=== PATIENT | female | born 1985 | race Caucasian/White ===

== ENCOUNTER → 2019-10-28 10:05 | Outpatient (CLI) | payer OTHER, SELFPAY ==
[2019-10-28 11:32] LABS: Add Manual Diff / Slide Review NO; Basophils Absolute Auto 0 /uL (0-100); Basophils Percent Auto 0.1 % (0-2); Eosinophils Absolute Auto 0 /uL (0-450); Eosinophils Percent Auto 0.3 % (2-4); Hemoglobin 13.1 g/dL (12.0-16.0); Lymphocytes Absolute Auto 1800 /uL (1100-4500); Lymphocytes Percent Auto 19.6 % (25-40); Mean Corpuscular HGB Conc 32.8 % (30-36); Mean Corpuscular Hemoglobin 26.2 PG (26-34); Monocytes Absolute Auto 500 /uL (0-900); Monocytes Percent Auto 5.5 % (3-14); Neutrophils Absolute Auto 6900 /uL (1500-7000); Neutrophils Percent Auto 74.5 % (50-75); Platelet Count 298 X10^3/uL (150-400); Red Blood Cell Count 5.01 X10^6/uL (4.0-5.2); Red Cell Distribution Width 15.2 % (11.6-14.8); White Blood Cell Count 9.2 X10^3/uL (4.5-11.0)
[2019-10-28 11:36] LABS: Appearance Urine UA CLEAR; Bilirubin Urine UA NEGATIVE (NEGATIVE); Color Urine UA YELLOW; Glucose Urine UA NEGATIVE (Negative); Ketones Urine UA NEGATIVE (NEGATIVE); Leukocyte Esterase Urine UA NEGATIVE (NEGATIVE); Nitrite Urine UA NEGATIVE (Negative); Occult Blood Urine UA NEGATIVE (Negative); Protein Urine UA NEGATIVE (Negative); Specific Gravity Urine UA <=1.005 (1.000-1.035); Urobilinogen Urine UA 0.2 E.U./dL (0.2)
[2019-10-28 11:39] LABS: pH Urine UA 6.5 (4.5-8.0)
[2019-10-28 12:30] LABS: Hepatitis B Surface Antigen NEGATIVE s/c (NEGATIVE); Rubella Antibody IgG 17.5 IU/mL (>15)
[2019-10-28 12:52] LABS: HIV 1 & 2 Ab/Ag 4th Gen Combo NEGATIVE (NEGATIVE); Hep C Virus Ab w/Reflex Quant NEGATIVE s/c (NEGATIVE)
[2019-10-29 07:56] LABS: RPR Screen Non Reactive (Non Reactive)
[2019-10-29 10:36] LABS: Varicella IgG Antibody 3337 index (Immune >165)
== END ==
PROVIDERS: PCP Obstetrics & Gynecology; Referring Provider Obstetrics & Gynecology; Visit Provider Obstetrics & Gynecology
DX: Z34.01 Encounter for supervision of normal first pregnancy, first trimester (principal)
CPT/HCPCS: 36415; 80055; 81003; 86787; 86803; 86850; 86900; 86901; 87086; 87389

== ENCOUNTER → 2019-11-28 10:28 | Outpatient (CLI) | payer OTHER, SELFPAY ==
[2019-11-29 23:26] LABS: COVID19 Sendout Not Detected (Not Detect)
== END ==
PROVIDERS: Visit Provider Physician Assistant
DX: Z11.59 Encounter for screening for other viral diseases (principal)
CPT/HCPCS: 87635

== ENCOUNTER → 2019-12-22 15:22 | Outpatient (CLI) | payer OTHER, SELFPAY ==
[2019-12-24 22:36] LABS: AFP, Serum 32.8 ng/mL (.); Estriol, Free 1.02 ng/mL (.); Inhibin A, Dimeric 96.77 pg/mL (.); Inhibin A, MoM 0.87 (.); Maternal Ethnicity Caucasian (.); Maternal Weight 298 lbs (.); Number of Fetuses No (.); OSBR Risk 1 IN 6301 (.); Results Report (.); Test Results *Screen Negative* (.); hCG, MoM 1.32 (.); hCG, Serum 26875 mIU/mL (.)
== END ==
PROVIDERS: PCP Physician Assistant; Referring Provider Obstetrics & Gynecology; Visit Provider Obstetrics & Gynecology
DX: Z34.02 Encounter for supervision of normal first pregnancy, second trimester (principal); Z3A.17 17 weeks gestation of pregnancy
CPT/HCPCS: 36415; 82105; 82677; 84702; 86336

== ENCOUNTER → 2020-01-16 10:38 | Outpatient (CLI) | payer OTHER, SELFPAY ==
--- NOTE | 2020-01-16 10:39 | DI.US.S_ITS ---
PROCEDURE: US OB >= 14 WEEKS FETUS INDICATIONS: Anatomy scan OUTSIDE/PRIOR DATING DATA: Last menstrual period (LMP): 08/22/19. LMP-based estimated date of delivery (ANGELIA): 05/28/20 First dating scan (date and location): 10/28/19 Estimated date of delivery (ANGELIA) from first dating scan: 05/28/20 . TECHNIQUE: Real-time scanning was performed of the fetus, with image documentation and biometric measurements. Endovaginal scanning: Not needed COMPARISON: [facility], , OB >= 14 WEEKS FETUS, 12/22/2019, 15:10. FINDINGS: General: A single living intrauterine gestation is present. Presentation: Vertex. Placenta: Placental position is posterior , without previa. Amniotic fluid index: 0.6 cm, normal range is 5-24 cm. heart rate: 163 beats per minute. Maternal cervical canal: 4.0 cm long. Normal lower limit is 2.5 cm. biometrics: Biparietal diameter: 5.0 cm, 21 weeks 0 days Head circumference: 18.6 cm, 20 weeks 6 days Abdominal circumference: 16.3 cm, 21 weeks 2 days Femur length: 3.5 cm, 21 weeks 1 day Estimated gestational age from initial scan: 21 weeks 0 days Composite gestational age from present scan: 21 weeks 1 day Estimated weight and percentile: 407 g, 56th percentile Measurement variability for biometric dating: +/- 7 days from 14 weeks to 15 weeks 6 days gestation, +/- 10 days from 16 weeks to 21 weeks 6 days gestation, +/- 2 weeks from 22 weeks to 27 weeks 6 days gestation, +/- 3 weeks for 28 weeks gestation or later. weight reference: 4500 g or EFW >90/95% is considered macrosomia or large for gestational age. EFW <10% is small for gestational age. EFW 5% or less is considered intra-uterine growth restriction. Anatomic survey: Neuro: Ventricles are non-dilated at less than 10 mm. Cisterna magna is normal at 3-11 mm. Cerebellum is normal in size and morphology. Nuchal skin fold: Normal at less than 6 mm between 14-21 weeks gestational age. Face: Nose and lips, facial profile are normal. Spine: No evidence for spina bifida. Heart: 4-chambered heart is present, with normal ventricular outflow tracts. Diaphragm: Diaphragm is intact. Stomach: Left-sided stomach is present. Kidneys: No hydronephrosis. Normal is less than 5 mm in 2nd trimester, less than 7 mm in 3rd trimester. Cord: 3-vessel cord has orthotopic insertion. Bladder: Normal in size. Extremities: All 4 extremities identified. IMPRESSION: Appropriate interval growth, no anomaly seen. The delivery date is projected to be centered on 05/28/20. Dictated by: José Miguel Sood M.D. on 01/16/2020 at 13:51 Approved by: José Miguel Sood M.D. on 01/16/2020 at 13:53
== END ==
PROVIDERS: PCP Physician Assistant; Referring Provider Obstetrics & Gynecology; Visit Provider Obstetrics & Gynecology
DX: Z34.02 Encounter for supervision of normal first pregnancy, second trimester (principal); Z3A.21 21 weeks gestation of pregnancy
CPT/HCPCS: 76811

== ENCOUNTER → 2020-02-23 07:57 | Outpatient (CLI) | payer OTHER, SELFPAY ==
[2020-02-23 09:35] LABS: Hematocrit 35.9 % (36-46); Hemoglobin 11.8 g/dL (12.0-16.0)
[2020-02-23 10:14] LABS: GTT (PREG) 1 Hour PP 50gm Dose 124 mg/dL (76-139)
== END ==
PROVIDERS: PCP Physician Assistant; Referring Provider Obstetrics & Gynecology; Visit Provider Obstetrics & Gynecology
DX: Z34.02 Encounter for supervision of normal first pregnancy, second trimester (principal); Z3A.26 26 weeks gestation of pregnancy
CPT/HCPCS: 36415; 82950; 85014; 85018

== ENCOUNTER 2020-04-21 16:56 | Outpatient (CLI) | payer OTHER, SELFPAY ==
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
== END 2020-04-21 17:40 | disposition home or self-care (01) ==
LOC: OB 04-22 07:17
PROVIDERS: PCP Physician Assistant; Referring Provider Obstetrics & Gynecology; Visit Provider Obstetrics & Gynecology
DX: O36.8130 Decreased fetal movements, third trimester, not applicable or unspecified (principal); O13.3 Gestational [pregnancy-induced] hypertension without significant proteinuria, third trimester; Z3A.34 34 weeks gestation of pregnancy
CPT/HCPCS: 59025; 59050; G0378; G0379

== ENCOUNTER → 2020-05-03 10:01 | Outpatient (CLI) | payer OTHER, SELFPAY ==
[2020-05-04 12:07] LABS: Strep Grp B PCR POS for Grp B Strep
== END ==
PROVIDERS: PCP Physician Assistant; Visit Provider Obstetrics & Gynecology
DX: Z34.03 Encounter for supervision of normal first pregnancy, third trimester (principal); Z3A.36 36 weeks gestation of pregnancy
CPT/HCPCS: 87653

== ENCOUNTER 2020-05-25 18:36 | Inpatient (IN) | payer OTHER, SELFPAY ==
[2020-05-25 19:46] VITALS: BP 130/77
[2020-05-25 20:11] LABS: Add Manual Diff / Slide Review NO; Basophils Absolute Auto 100 /uL (0-100); Basophils Percent Auto 0.4 % (0-2); Eosinophils Absolute Auto 100 /uL (0-450); Eosinophils Percent Auto 0.6 % (2-4); Hematocrit 34.6 % (36-46); Hemoglobin 11.3 g/dL (12.0-16.0); Lymphocytes Absolute Auto 2000 /uL (1100-4500); Lymphocytes Percent Auto 14.6 % (25-40); Mean Corpuscular HGB Conc 32.7 % (30-36); Mean Corpuscular Hemoglobin 25.9 PG (26-34); Mean Corpuscular Volume 79.2 fL (80-100); Monocytes Absolute Auto 700 /uL (0-900); Monocytes Percent Auto 5.2 % (3-14); Neutrophils Absolute Auto 10900 /uL (1500-7000); Neutrophils Percent Auto 79.2 % (50-75); Platelet Count 255 X10^3/uL (150-400); Red Blood Cell Count 4.37 X10^6/uL (4.0-5.2); Red Cell Distribution Width 15.5 % (11.6-14.8); White Blood Cell Count 13.7 X10^3/uL (4.5-11.0)
[2020-05-25] MEDS: DINOPROSTONE VAG (CERVIDIL) 10 MG VAG (20:17)
[2020-05-25 21:33] LABS: COVID19 - ADMIT (NP swab/PCR) Negative (Negative)
[2020-05-26] MEDS: PENICILLIN G POTASSIUM 5,000,000 UNIT in DEXTROSE 5% IN WATER 250 ML IV (08:00)
[2020-05-26] MEDS: LACTATED RINGERS 1,000 ML 100 ML IV ×3 (08:01→18:26)
[2020-05-26] MEDS: OXYTOCIN PREMIX 30 UNIT/500 ML PLAST..BAG IV (08:02)
[2020-05-26] MEDS: PENICILLIN G POTASSIUM 3,000,000 UNIT/50 ML FROZ.PIGGY 100 UNIT IV ×3 (12:08→20:10)
[2020-05-26] MEDS: FENT 2MCG/ML BUPIV 0.125% EPI 200 MCG/100 ML PLAST..BAG 12 MCG EPIDURAL ×2 (12:30→18:27)
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
--- NOTE | 2020-05-26 21:52 | PM.OBPNLAB ---
Date/Time Date Patient Seen: 05/26/20 Time Patient Seen: 13:00 Pain Control Pain control: tolerating well Pelvic Exam Dilation (cm): 3 Effacement (%): 100 station: -1 Amniotic membrane status: Ruptured (Spontaneously) Contractions Monitor mode: External Pitocin rate (mU/min): 9 Contraction frequency (min): 3 Contraction duration (min): 1 Contraction pattern: Irregular (couplets) Contraction intensity: Moderate Status status: Category l Heart Rate Baseline: 130 Monitor Accelerations: Present Monitor Decelerations: Absent Monitor Variability: Moderate Assessment and Plan Assessment: induction ongoing Plan: continuous present management
--- NOTE | 2020-05-26 21:53 | PM.OBPNLAB ---
Date/Time Date Patient Seen: 05/26/20 Time Patient Seen: 15:45 Pain Control Pain control: epidural Pelvic Exam Dilation (cm): 4 Effacement (%): 100 station: -1 Amniotic membrane status: Ruptured (Spontaneously) Contractions Monitor mode: External Pitocin rate (mU/min): 6 Contraction frequency (min): 3 Contraction duration (min): 1 Contraction pattern: Regular (couplets) Contraction intensity: Moderate Status status: Category l Heart Rate Baseline: 135 Monitor Accelerations: Present Monitor Decelerations: Absent Monitor Variability: Moderate Assessment and Plan Assessment: induction ongoing Plan: continuous present management
--- NOTE | 2020-05-26 21:55 | PM.OBPNLAB ---
Date/Time Date Patient Seen: 05/26/20 Time Patient Seen: 18:30 Pain Control Pain control: epidural Pelvic Exam Dilation (cm): 5 Effacement (%): 100 station: -1 Amniotic membrane status: Ruptured (Spontaneously) Contractions Monitor mode: External Pitocin rate (mU/min): 13 Contraction frequency (min): 3 Contraction duration (min): 1 Contraction pattern: Regular (couplets) Contraction intensity: Strong/Firm Status status: Category l Heart Rate Baseline: 135 Monitor Accelerations: Present Monitor Decelerations: Absent Monitor Variability: Moderate Assessment and Plan Assessment: induction ongoing Comments: IUPC placed to assess uterine contraction adequacy
--- NOTE | 2020-05-26 21:56 | PM.OBPNLAB ---
Date/Time Date Patient Seen: 05/26/20 Time Patient Seen: 21:41 Pain Control Pain control: epidural (Left sided window) Pelvic Exam Dilation (cm): 8 Effacement (%): 100 station: 0 Amniotic membrane status: Ruptured (Spontaneously) Contractions Monitor mode: Internal Pitocin rate (mU/min): 7 Contraction frequency (min): 2 Contraction duration (min): 1 Contraction pattern: Regular (couplets) Contraction intensity: Strong/Firm Intrauterine tone measurement: 420 Status status: Category l Heart Rate Baseline: 135 Monitor Accelerations: Present Monitor Decelerations: Absent Monitor Variability: Moderate Assessment and Plan Assessment: active labor and induction ongoing Plan: continuous present management Comments: Decrease pitocin until contractions back to 3 min apart
--- NOTE | 2020-05-26 23:30 | PM.OBPNLAB ---
Date/Time Date Patient Seen: 05/26/20 Time Patient Seen: 23:30 Pain Control Pain control: epidural Pelvic Exam Dilation (cm): 9 Effacement (%): 100 station: 0 Amniotic membrane status: Ruptured (Spontaneously) Contractions Monitor mode: Internal Pitocin rate (mU/min): 5 Contraction frequency (min): 3 Contraction duration (min): 1 Contraction pattern: Regular (couplets) Contraction intensity: Strong/Firm Intrauterine tone measurement: 200 Status status: Category l Heart Rate Baseline: 135 Monitor Accelerations: Present Monitor Decelerations: Variable Monitor Variability: Moderate Assessment and Plan Assessment: induction ongoing Plan: continuous present management
[2020-05-27] VITALS (7 sets, daily range): BP systolic 103–124; BP diastolic 44–79; PULSE 71–83; RESP 9–18; TEMP 36.6–36.7; O2SAT 99–100
[2020-05-27] MEDS: PENICILLIN G POTASSIUM 3,000,000 UNIT/50 ML FROZ.PIGGY 100 UNIT IV ×2 (00:05→04:15)
--- NOTE | 2020-05-27 03:36 | PM.OBPNLAB ---
Date/Time Date Patient Seen: 05/27/20 Time Patient Seen: 03:36 Pain Control Pain control: epidural Pelvic Exam Dilation (cm): 10 Effacement (%): 100 station: +1 Amniotic membrane status: Ruptured (Spontaneously) Contractions Monitor mode: External Pitocin rate (mU/min): 7 Contraction frequency (min): 3 Contraction duration (min): 1 Contraction pattern: Regular (couplets) Contraction intensity: Strong/Firm Intrauterine tone measurement: 200 Status status: Category l Heart Rate Baseline: 160 Monitor Accelerations: Present Monitor Decelerations: Absent Monitor Variability: Moderate Assessment and Plan Plan: Comments: Assessement: Stage 2 arrest of labor Suspect Occiput Posterior Plan: Primary C section Peds notified The risks, benefits and alternatives to the procedure were explained to the patient. The risks including bleeding, infection, injury to the bowel, bladder or ureters. The patient understands these risks and agrees to proceed. A full PAR-Q was held and the consent form was signed.
--- NOTE | 2020-05-27 04:35 | PM.PREOP ---
Pre-operative Note COVID-19 COVID-19 status: Negative Result date/Date tested (Pos, Neg/Pending): 05/25/20 Interval Note History & Physical reviewed/Exam performed by Physician: Yes Changes to H&P: No H&P completed within 30 days and has changed as indicated here:: 05/26/20
[2020-05-27] MEDS: CEFAZOLIN 1 GM/50 ML FROZ.PIGGY IV (04:43)
[2020-05-27] MEDS: CEFAZOLIN 2 GM/100 ML FROZ.PIGGY IV (04:48)
--- NOTE | 2020-05-27 05:27 | SUR.OPER ---
live female at 0508. APGARS 8/9
--- NOTE | 2020-05-27 05:55 | P.OP_ITS ---
Operative Date/Time/Diagnoses Date of procedure: 05/27/20 Time of procedure: 05:55 Pre-op diagnosis: Stage 2 arrest of labor 39+6 weeks gestation Occiput posterior Post-op diagnosis: same Procedure & Clinicians Procedure: Primary low-transverse section Same procedure as scheduled: Yes Indications: Occiput posterior Stage II arrest of labor Thirty-nine and 6 7th weeks gestation Surgeon: Gaviota Mendoza Yes if Unassisted: No Bakeshop Cleaner: Estella Grewal Reason for Bakeshop Cleaner: Mother with obesity Anesthesia Type: Epidural Operative Notes Findings: Live female infant in the direct occiput posterior presentation Nuchal cord x1 Normal uterus, tubes, and ovaries Closure Type: primary Specimen(s): cord blood and placenta Intraoperative meds administered: Duramorph, Ketorolac and Pitocin Applied: Catheter (To continuous drainage) Estimated Blood Loss (mL): 500 Blood products transfused: none Procedure in detail: The patient was taken to the operating room where she was placed in the dorsal supine position with a leftward tilt. She was prepped in the usual fashion. After vaginal prep, the head was elevated from below. The patient was draped in the usual fashion. A timeout was performed. After epidural analgesia was found to be adequate, a Pfannenstiel skin incision was made 2 fingerbreadths above the pubic symphysis and carried through to the underlying layer fascia with retraction from the drilling assistant. The fascia was nicked in the midline, and the incision extended bilaterally with the Payne scissors with retraction from the drilling assistant. The superior aspect of the fascial incision was grasped with a Wilson clamps, elevated, and the underlying rectus muscles dissected off sharply and bluntly with retraction from the drilling assistant. Attention was then turned to the inferior aspect of this incision which in a similar fashion was grasped with a Wilson clamps, elevated, and the underlying rectus muscles dissected off sharply and bluntly with retraction from the drilling assistant. The rectus muscles were in the midline. The peritoneum was identified, grasped between 2 hemostats, and entered sharply with the Metzenbaum scissors. This incision was extended superiorly and inferiorly with good visualization of the bladder and retraction from the drilling assistant. The Nilay was placed into the peritoneal cavity. The vesicouterine peritoneum was identified, grasped with the pickup, and entered sharply with the Metzenbaum scissors. This incision was extended bilaterally, and the bladder flap was cre ated digitally. The lower uterine segment was incised in a transverse fashion with the scalpel with suction from the drilling assistant. Upon entering the amniotic sac there was a small amount of clear amniotic fluid. The 's head was delivered without difficulty in the direct occiput posterior presentation. A nuchal cord x1 was reduced. The nose and mouth were suctioned with bulb suction. The remainder of the body delivered without difficulty. The cord was double clamped and cut. The infant was handed off to waiting RN and RT. Cord bloods were obtained. The placenta was delivered manually. The uterus was cleared of all clots and debris. There was found to be an extension of the uterine incision on the right side. This was repaired in a running interlocking suture with #1 chromic. The uterine incision was repaired with #1 chromic in a running interlocking fashion, and a second layer the same suture was used for an imbricating layer. With retraction from the drilling assistant. Hemostasis was achieved. The tubes and ovaries were examined and were found to be normal. The gutters were cleared of all clots and debris. The bladder flap was reapproximated using 2-0 Vicryl in a running fashion with retraction from the drilling assistant. The parietal peritoneum was closed using 2-0 Vicryl in a running fashion with retraction from the drilling assistant. The fascia was reapproximated using 0 Vicryl in a running fashion and the contralateral side was done by the drilling assistant. The subcutaneous layer was copiously irrigated with warm normal saline. Twelve simple interrupted sutures of 3-0 Vicryl were placed to reapproximate the subcutaneous layer in 2 layers, with retraction from the drilling assistant. The skin was closed with 4-0 Monocryl in a subcuticular fashion. Steri-Strips were placed. An Aquacel dressing was placed. The uterus was expressed of a small amount of old blood. Sponge, lap, and instrument counts were correct ?-2. The patient tolerated the procedure well, and was taken to PACU in stable condition. Complications: none [place] Baby 1: Infant Gender: Female Presentation: vertex Position: Occiput Posterior Placental Delivery Description: Spontaneous and Manual Removal Cord Vessel Description: 3 Vessels and Nuchal Cord score (1 min): 8 score (5 min): 9 weight: 7 lb 12 oz Post-operative Condition: stable Disposition: PACU Aftercare: routine postop
--- NOTE | 2020-05-27 06:24 | SUR.PHASEI ---
0619 Patient to 2. Bed remains elevated for RN patient care; locked. VSS. Patient relaxed, denies pain/nausea. RN given report prior to transfer. She is settling the patient and had no further questions for PACU staff. Stable, no bleeding, dressing CDI at last check
[2020-05-27] MEDS: LANOLIN OINT 7 GM 1 APPLIC TOP (07:52)
[2020-05-27] MEDS: KETOROLAC 30 MG/ML VIAL IV ×3 (11:33→23:37)
[2020-05-27] MEDS: OXYCODONE IR 5 MG TABLET PO (11:40)
[2020-05-28] MEDS: IBUPROFEN 600 MG TABLET PO ×4 (05:40→23:58)
[2020-05-28] MEDS: ACETAMINOPHEN 325 MG TABLET 650 MG PO ×4 (05:40→23:58)
[2020-05-28 05:48] LABS: Hematocrit 27.5 % (36-46)
[2020-05-28] MEDS: DOCUSATE 250 MG CAPSULE PO (08:46)
[2020-05-28] MEDS: PRENATAL VIT,CALC/IRON/FOLIC 1 TABLET 1 TAB PO (08:47)
[2020-05-28] MEDS: OXYCODONE IR 5 MG TABLET PO ×4 (08:49→23:57)
[2020-05-28 09:00] VITALS: BP 111/73; PULSE 85
--- NOTE | 2020-05-28 13:08 | PM.OBPN.1 ---
Subjective - OB Subjective Date Patient Seen: 05/28/20 Time Patient Seen: 07:40 Interval history: Pt reports that she is feeling well today. She denies any specific concerns. Her pain is slightly worse today than yesterday, but she was out of bed very often yesterday. Her lochia is around the level of a normal menses. She has passed flatus and is voiding without difficulty. She is with good latch. Baby was more fussy last night. Exam Vital Signs (past 8 hours): Oxygen Delivery Method Room Air Resp Auscultation: clear to auscultation bilaterally Cardio Rate: regular rate Rhythm: regular rhythm Heart Sounds: S1 normal, S2 normal and no murmurs GI Inspection: non-distended, incision (dressing c/d/i) and obesity Palpation: soft, No guarding and tender (appropriately tender) Auscultation: normal bowel sounds Other: fundus firm and below the umbilicus Extrem Right upper extremity: no edema Objective Labs Result Diagrams: 05/28/20 05:25 Labs: Laboratory Results - last 24 hr 05/28/20 05:25 Hgb 9.0 L Hct 27.5 L Assessment & Plan Plan Comments: Pt is a 34yo POD#1 s/p primary without complications. Pt doing well. - Normal /postoperative care - support Time Spent With Patient Time: Total time spent is greater than 50% in coordination of care (as documented) at patient's floor/unit and/or counseling patient: Time with patient: less than 15 minutes
[2020-05-28 16:00] VITALS: BP 130/87; PULSE 87; RESP 16; TEMP 37
[2020-05-28] MEDS: LABETALOL 100 MG TABLET PO (20:28)
[2020-05-29] MEDS: ACETAMINOPHEN 325 MG TABLET 650 MG PO (06:50)
[2020-05-29] MEDS: OXYCODONE IR 5 MG TABLET PO (06:50)
[2020-05-29] MEDS: IBUPROFEN 600 MG TABLET PO (06:51)
[2020-05-29 09:07] VITALS: BP 148/87
[2020-05-29] MEDS: PRENATAL VIT,CALC/IRON/FOLIC 1 TABLET 1 TAB PO (09:07)
[2020-05-29] MEDS: LABETALOL 100 MG TABLET PO (09:07)
--- NOTE | 2020-05-29 09:26 | P.DS_ITS ---
Discharge Providers Provider Date of admission: 05/25/20 18:36 Discharge Date: 05/29/20 Primary care physician: Yamila Carranza PA-C Consults: 05/27/20 06:36 Consult to Slabbing Machine Operator Routine Comment: Discharge provider: Selma Zamarripa MD Summary Hospital Course Date Patient Seen: 05/29/20 Time Patient Seen: 09:27 Diagnoses: gestational hypertension, primary section for arrest of descent in the second stage of labor. Hospital Course: This is a 34-year-old now postop day 2 status post primary section for arrest of descent in the 2nd stage after induction of labor for gestational hypertension. The patient continues to be largely normotensive off of antihypertensives with no PIH symptoms or other concerns, is meeting postoperative goals well. Cautions for return were discussed and the patient is for discharge home today with outpatient follow-up scheduled. Peripartum Data Infant Delivery Method: Section Procedures: Primary section complications: none [place] 1: Gender: Female Disposition of : home Status at Discharge Cognitive/behavioral status at discharge: oriented Functional status at discharge: independent ambulation Overall status at discharge: patient is progressing back to baseline Time Spent with Patient Time attestation: Total time spent providing and/or coordinating discharge services: Time spent: Less than 30 minutes Objective Labs Result Diagrams: 05/28/20 05:25 Exam Vital Signs (past 8 hours): 120s to 130s over 60s to 80s, heart rate 74 Oxygen Delivery Method Room Air Narrative Exam Narrative: Patient ambulating, passing flatus, tolerating p.o., voiding, mild lochia. Good pain control on p.o. medications, no PIH symptoms. Patient . Const General: cooperative, healthy appearing and comfortable Resp Effort & Inspection: normal respiratory effort Auscultation: clear to auscultation bilaterally Cardio Rate: regular rate Rhythm: regular rhythm GI Inspection: incision (Covered by Aquacel) and large pannus Palpation: soft and No tender Extrem General: normal to inspection (1+ edema lower extremities) Discharge Plan Discharge Plan Patient Disposition: Home Provider Discharge Comment: Call with fever, chills, redness or drainage around incision or bleeding vaginally more than a pad in an hour Push fluids Stool softner as needed Discharge orders & Medications Prescriptions: New oxycodone 5 mg tablet 5 mg PO Q4H PRN (Reason: pain) Qty: 20 RF: 0 Continued prenat.vits,alexander,iuo-booe-avqys Tablet 1 tab PO DAILY RF: 0 loratadine [Claritin] 10 mg tablet 10 mg PO DAILY RF: 0 montelukast 10 mg tablet 10 mg PO DAILY RF: 0 albuterol sulfate [Ventolin HFA] 90 mcg/actuation HFA aerosol inhaler 2 puff INHALATION Q6H PRN (Reason: asthma) Qty: 8.5 RF: 3 labetalol 100 mg tablet 100 mg PO BID Qty: 60 RF: 3 Follow up/Referrals: Gaviota Brantley MD [Physician] - 1 Week (Aquacel removal on , 06/03/2020 @ [address] Brantley) Diet/Activity/Treatments Diet: Regular Activity: No heavy lifting Skin/Wound/Dressing Care Report to your healthcare provider any signs of infection, such as:: chills, fever, night sweats, increased pain, unusual drainage and unusual redness Dressing: Do not remove Visit Report/Discharge Packet Instructions: DI for , DI for Prescription Opioid Use Discharge Data Primary Care Provider: Yamila Carranza
== END 2020-05-29 11:45 | disposition home or self-care (01) | DRG 788 ==
PROVIDERS: Admitting Provider Obstetrics & Gynecology; PCP Physician Assistant; Referring Provider Obstetrics & Gynecology; Visit Provider Obstetrics & Gynecology
PROC: 10D00Z1 Extraction of Products of Conception, Low, Open Approach (ICD-10-PCS; CPT 59514; principal; 2020-05-27 04:45)
DX: O64.0XX0 Obstructed labor due to incomplete rotation of fetal head, not applicable or unspecified (principal); O99.214 Obesity complicating childbirth; O62.1 Secondary uterine inertia; Z3A.39 39 weeks gestation of pregnancy; Z37.0 Single live birth; O99.824 Streptococcus B carrier state complicating childbirth; O13.4 Gestational [pregnancy-induced] hypertension without significant proteinuria, complicating childbirth
CPT/HCPCS: 01967; 01968; 36415; 59050; 59200; 59510; 59514; 76815; 85014; 85018; 85025; 86850; 86900; 86901; 87635; C9803; G0379; J0690; J1885; J2274; J2405; J2540; J2590; J3010

== ENCOUNTER → 2020-06-08 16:47 | Outpatient (CLI) | payer OTHER, SELFPAY ==
[2020-06-08 17:42] LABS: Appearance Urine UA CLEAR; Bilirubin Urine UA NEGATIVE (NEGATIVE); Color Urine UA YELLOW; Glucose Urine UA NEGATIVE (Negative); Ketones Urine UA NEGATIVE (NEGATIVE); Leukocyte Esterase Urine UA 1+ (NEGATIVE); Nitrite Urine UA NEGATIVE (Negative); Occult Blood Urine UA 1+ (Negative); Protein Urine UA NEGATIVE (Negative); Urobilinogen Urine UA 0.2 E.U./dL (0.2)
[2020-06-08 17:56] LABS: Bacteria Urine Few (2-10); Culture Indicated Urine Specimen Cultured; RBC Urine 1-5/HPF (0-5/HPF); Renal Epithelial Cells Urine 0-1/HPF (0-1/HPF); Squamous Epithelial Cell Urine 0-1 /HPF (0-5/HPF); Transitional Epi Cells Urine 0-1/HPF (0-5/HPF); WBC Urine 1-5/HPF (0-5/HPF)
== END ==
PROVIDERS: Referring Provider Obstetrics & Gynecology; Visit Provider Obstetrics & Gynecology
DX: M54.5 Low back pain (principal)
CPT/HCPCS: 81001; 87086

== ENCOUNTER → 2021-05-24 17:18 | Outpatient (CLI) | payer OTHER, SELFPAY ==
[2021-05-24 17:40] LABS: Add Manual Diff / Slide Review NO; Basophils Absolute Auto 0 /uL (0-100); Basophils Percent Auto 0.3 % (0-2); Eosinophils Absolute Auto 0 /uL (0-450); Eosinophils Percent Auto 0.5 % (2-4); Hematocrit 39.1 % (36-46); Hemoglobin 12.9 g/dL (12.0-16.0); Lymphocytes Absolute Auto 2600 /uL (1100-4500); Lymphocytes Percent Auto 25.9 % (25-40); Mean Corpuscular HGB Conc 32.9 % (30-36); Mean Corpuscular Hemoglobin 25.2 PG (26-34); Mean Corpuscular Volume 76.6 fL (80-100); Monocytes Absolute Auto 400 /uL (0-900); Monocytes Percent Auto 4.4 % (3-14); Neutrophils Absolute Auto 7000 /uL (1500-7000); Neutrophils Percent Auto 68.9 % (50-75); Platelet Count 277 X10^3/uL (150-400); Red Blood Cell Count 5.11 X10^6/uL (4.0-5.2); Red Cell Distribution Width 16.2 % (11.6-14.8); White Blood Cell Count 10.2 X10^3/uL (4.5-11.0)
[2021-05-25 06:34] LABS: RPR Screen Non Reactive (Non Reactive)
[2021-05-25 06:36] LABS: Varicella IgG Antibody 1786 index (Immune >165)
[2021-05-26 16:39] LABS: HIV 1 & 2 Ab/Ag 4th Gen Combo NEGATIVE (NEGATIVE); Hep C Virus Ab w/Reflex Quant NEGATIVE s/c (NEGATIVE); Hepatitis B Surface Antigen NEGATIVE s/c (NEGATIVE); Rubella Antibody IgG 14.5 IU/mL (>15)
== END ==
PROVIDERS: Referring Provider Obstetrics & Gynecology; Visit Provider Obstetrics & Gynecology
DX: Z34.80 Encounter for supervision of other normal pregnancy, unspecified trimester (principal)
CPT/HCPCS: 36415; 80055; 86787; 86803; 86850; 86900; 86901; 87389

== ENCOUNTER → 2021-07-04 10:08 | Outpatient (CLI) | payer OTHER, SELFPAY ==
[2021-07-06 20:12] LABS: AFP, Serum 51.2 ng/mL (.); Calc Gestational Age Ultrasound (.); Estriol, Free 3.24 ng/mL (.); Inhibin A, Dimeric 264.45 pg/mL (.); Inhibin A, MoM 2.46 (.); Maternal Ethnicity Caucasian (.); Maternal Weight 297 lbs (.); Number of Fetuses Twins (.); OSBR Risk 1 IN 4524 (.); Results Report (.); Test Results *Screen Negative* (.); hCG, MoM 3.12 (.); hCG, Serum 58863 mIU/mL (.)
== END ==
PROVIDERS: Referring Provider Obstetrics & Gynecology; Visit Provider Obstetrics & Gynecology
DX: Z34.80 Encounter for supervision of other normal pregnancy, unspecified trimester (principal); Z3A.18 18 weeks gestation of pregnancy
CPT/HCPCS: 36415; 82105; 82677; 84702; 86336

== ENCOUNTER → 2021-07-20 10:38 | Outpatient (CLI) | payer OTHER, SELFPAY ==
--- NOTE | 2021-07-20 10:40 | DI.US.S_ITS ---
PROCEDURE: US OB >= 14 WEEKS FETUS INDICATIONS: anatomy scan OUTSIDE/PRIOR DATING DATA: Last menstrual period (LMP): 02/25/2021 LMP-based estimated date of delivery (ANGELIA): 12/02/2021 First dating scan (date and location): 04/25/2021 Estimated date of delivery (ANGELIA) from first dating scan: 12/03/2021 The calculations are made using the ultrasound ANGELIA of 12/03/2021 TECHNIQUE: Real-time scanning was performed of the fetuses, with image documentation and biometric measurements. Endovaginal scanning: Not performed COMPARISON: [facility], US, US OB <= 14 WEEKS FETUS, 04/25/2021, 9:31. [facility], , US OB >= 14 WEEKS FETUS, 06/27/2021, 14:25. FINDINGS: General: An intrauterine dichorionic-diamniotic twin is present, as evidenced by a thick intervening septum on 1st trimester ultrasound. Maternal cervical canal: 5.2 cm long. Normal lower limit is 2.5 cm. FETUS A: Fetus is located on the maternal right side, and is in vertex presentation. Largest amniotic fluid pocket: 5.5 cm cm; normal range is 2-8 cm. Placental position is anterior, without previa. heart rate: 145 beats per minute. biometrics: Biparietal diameter: 4.8 cm, 20 weeks 3 days Head circumference: 18.2 cm, 20 weeks 4 days Abdominal circumference: 16.5 cm, 21 weeks 4 days Femur length: 3.6 cm, 21 weeks 3 days Clinically estimated gestational age: 20 weeks 4 days Composite gestational age from present scan: 21 weeks 0 days Estimated weight and percentile: 418 g, 85th percentile Anatomic survey: Neuro: Ventricles are normal at less than 10 mm. Cisterna magna is normal at 3-11 mm. Cerebellum is normal in size and morphology. Nuchal skin fold: Normal at less than 6 mm between 14 and 21 weeks gestational age. Face: Nose and lips, facial profile are normal. Spine: Spine is not well visualized due to position. Heart: 4 chambered heart is present, with normal ventricular outflow tracts. Diaphragm: Diaphragm is intact. Stomach: Left-sided stomach is present. Kidneys: No hydronephrosis. Normal ranges are less than 5 mm in 2nd trimester, less than 7 mm in 3rd trimester. Cord: 3 vessel cord has orthotopic insertion. Bladder: Normal in size. Extremities: All 4 extremities are visualized. FETUS B: Fetus is located on the maternal left side, and is in breech presentation. Largest amniotic fluid pocket: 4.3 cm; normal range is 2-8 cm. Placental position is anterior, without previa. heart rate: 155 beats per minute. biometrics: Biparietal diameter: 4.9 cm, 20 weeks 5 days Head circumference: 18.8 cm, 21 weeks 1 day Abdominal circumference: 15.8 cm, 20 weeks 6 days Femur length: 3.6 cm, 21 weeks 4 days Clinically estimated gestational age: 20 weeks 4 days Composite gestational age from present scan: 21 weeks 1 day Estimated weight and percentile: 405 g, 78th percentile Anatomic survey: Neuro: Ventricles are normal at less than 10 mm. Cisterna magna is normal at 3-11 mm. Cerebellum is normal in size and morphology. Nuchal skin fold: Normal at less than 6 mm between 14 and 21 weeks gestational age. Face: Nose and lips, facial profile are normal. Spine: Spine is not well visualized due to position. Heart: 4 chambered heart is present, with normal ventricular outflow tracts. Diaphragm: Diaphragm is intact. Stomach: Left-sided stomach is present. Kidneys: No hydronephrosis. Normal ranges are less than 5 mm in 2nd trimester, less than 7 mm in 3rd trimester. Cord: 3 vessel cord has orthotopic insertion. Bladder: Normal in size. Extremities: All 4 extremities are visualized. IMPRESSION: 1. Live intrauterine twin with appropriate growth. 2. spine not well visualized for twin A or twin B. Recommend follow-up exam. 3. Otherwise, normal anatomic survey for each fetus. We strive to produce accurate, complete, and clear reports of imaging services. To assist us in improving patient care, this report was composed using standard report templates and voice recognition software. Therefore, it may contain abnormal punctuation, insertions and/or omissions. Occasional wrong-word or sound-alike substitutions may occur. Though we review the report and make efforts to correct it, we do recommend that the report be read carefully in proper context to recognize any text inaccuracies. Dictated by: French Huizar M.D. on 07/20/2021 at 13:51 Approved by: French Huizar M.D. on 07/20/2021 at 14:02
== END ==
PROVIDERS: Referring Provider Obstetrics & Gynecology; Visit Provider Obstetrics & Gynecology
DX: O30.042 Twin pregnancy, dichorionic/diamniotic, second trimester (principal); Z3A.20 20 weeks gestation of pregnancy
CPT/HCPCS: 76811; 76812

== ENCOUNTER → 2021-08-24 11:01 | Outpatient (CLI) | payer OTHER, SELFPAY ==
[2021-08-24 13:37] LABS: Creatinine Urine Random 18.4 mg/dL; Protein (Total) Urine Random 13 mg/dL (0-12)
[2021-08-24 13:42] LABS: Add Manual Diff / Slide Review NO; Basophils Absolute Auto 0 /uL (0-100); Basophils Percent Auto 0.1 % (0-2); Eosinophils Absolute Auto 0 /uL (0-450); Eosinophils Percent Auto 0.4 % (2-4); Hematocrit 32.6 % (36-46); Hemoglobin 10.8 g/dL (12.0-16.0); Lymphocytes Absolute Auto 2100 /uL (1100-4500); Mean Corpuscular HGB Conc 33.3 % (30-36); Mean Corpuscular Hemoglobin 25.4 PG (26-34); Mean Corpuscular Volume 76.4 fL (80-100); Monocytes Absolute Auto 500 /uL (0-900); Monocytes Percent Auto 4.5 % (3-14); Neutrophils Absolute Auto 7500 /uL (1500-7000); Platelet Count 219 X10^3/uL (150-400); Red Blood Cell Count 4.26 X10^6/uL (4.0-5.2); White Blood Cell Count 10.1 X10^3/uL (4.5-11.0)
[2021-08-24 13:48] LABS: Alanine Aminotransferase 14 IU/L (<35); Aspartate Aminotransferase 15 IU/L (14-36); BUN Creatinine Ratio 10.9 (6-22); Blood Urea Nitrogen 6 mg/dL (7-17); Estimated Glomerular Filt Rate > 60 mL/min (>60); GTT (PREG) 1 Hour PP 50gm Dose 140 mg/dL (76-139); Uric Acid 4.3 mg/dL (2.5-6.2)
[2021-08-25 20:30] LABS: Urine N gonorrhoeae NOT DETECTED
[2021-08-25 20:49] LABS: Urine Chlamydia NOT DETECTED
== END ==
PROVIDERS: PCP Obstetrics & Gynecology; Referring Provider Obstetrics & Gynecology; Visit Provider Obstetrics & Gynecology
DX: O13.9 Gestational [pregnancy-induced] hypertension without significant proteinuria, unspecified trimester (principal); O30.049 Twin pregnancy, dichorionic/diamniotic, unspecified trimester; Z3A.26 26 weeks gestation of pregnancy
CPT/HCPCS: 36415; 82565; 82570; 82950; 84156; 84450; 84460; 84520; 84550; 85025; 87491; 87591

== ENCOUNTER → 2021-08-30 07:58 | Outpatient (CLI) | payer OTHER, SELFPAY ==
[2021-08-30 09:34] LABS: Glucose Fasting Gestational 97 mg/dL (76-95)
[2021-08-30 10:57] LABS: Glucose 1 Hour Gest 166 mg/dL (76-180)
[2021-08-30 12:53] LABS: Glucose 2 Hour Gest 111 mg/dL (76-155)
[2021-08-30 13:50] LABS: Glucose Tol Interp,Gestational INTERPRETATION
[2021-08-30 13:56] LABS: Glucose 3 Hour Gest 65 mg/dL (76-140)
== END ==
PROVIDERS: Referring Provider Obstetrics & Gynecology; Visit Provider Obstetrics & Gynecology
DX: O24.419 Gestational diabetes mellitus in pregnancy, unspecified control (principal)
CPT/HCPCS: 36415; 82951; 82952

== ENCOUNTER → 2021-10-14 16:35 | Outpatient (CLI) | payer OTHER, SELFPAY ==
[2021-10-14 17:10] LABS: Add Manual Diff / Slide Review NO; Basophils Absolute Auto 0 /uL (0-100); Basophils Percent Auto 0.3 % (0-2); Eosinophils Absolute Auto 100 /uL (0-450); Eosinophils Percent Auto 0.9 % (2-4); Hematocrit 34.4 % (36-46); Hemoglobin 11.3 g/dL (12.0-16.0); Lymphocytes Absolute Auto 2700 /uL (1100-4500); Lymphocytes Percent Auto 22.3 % (25-40); Mean Corpuscular Hemoglobin 25.4 PG (26-34); Mean Corpuscular Volume 77.1 fL (80-100); Monocytes Absolute Auto 700 /uL (0-900); Neutrophils Absolute Auto 8600 /uL (1500-7000); Neutrophils Percent Auto 70.5 % (50-75); Platelet Count 233 X10^3/uL (150-400); Red Blood Cell Count 4.46 X10^6/uL (4.0-5.2); Red Cell Distribution Width 16.8 % (11.6-14.8); White Blood Cell Count 12.3 X10^3/uL (4.5-11.0)
== END ==
PROVIDERS: Referring Provider Obstetrics & Gynecology; Visit Provider Obstetrics & Gynecology
DX: D64.9 Anemia, unspecified (principal)
CPT/HCPCS: 36415; 85025

== ENCOUNTER 2021-10-26 14:54 | Outpatient (CLI) | payer OTHER, SELFPAY ==
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
== END 2021-10-26 16:05 | disposition home or self-care (01) ==
LOC: LABOR 15:00 → OB 10-28 08:30
PROVIDERS: Referring Provider Obstetrics & Gynecology; Visit Provider Obstetrics & Gynecology
DX: O30.043 Twin pregnancy, dichorionic/diamniotic, third trimester (principal); O10.913 Unspecified pre-existing hypertension complicating pregnancy, third trimester; Z3A.34 34 weeks gestation of pregnancy
CPT/HCPCS: 59025; G0378; G0379

== ENCOUNTER 2021-11-01 10:52 | Outpatient (CLI) | payer OTHER, SELFPAY | END 2021-11-01 11:43 | disposition home or self-care (01) | LOC: LABOR 11:49 → OB 11-03 17:09 | PROVIDERS: Referring Provider Obstetrics & Gynecology; Visit Provider Obstetrics & Gynecology | DX: O30.003 Twin pregnancy, unspecified number of placenta and unspecified number of amniotic sacs, third trimester (principal); O10.913 Unspecified pre-existing hypertension complicating pregnancy, third trimester; Z3A.35 35 weeks gestation of pregnancy | CPT/HCPCS: 59025; G0378; G0379 ==

== ENCOUNTER → 2021-11-08 15:16 | Outpatient (CLI) | payer OTHER, SELFPAY ==
[2021-11-09 16:25] LABS: Strep Grp B PCR NEG for Grp B Strep
== END ==
PROVIDERS: Visit Provider Obstetrics & Gynecology
DX: Z34.83 Encounter for supervision of other normal pregnancy, third trimester (principal); Z3A.36 36 weeks gestation of pregnancy
CPT/HCPCS: 87653

== ENCOUNTER 2021-11-08 16:03 | Observation (INO) | payer OTHER, SELFPAY | END 2021-11-08 16:45 | disposition home or self-care (01) | LOC: LABOR 16:06 | PROVIDERS: Admitting Provider Obstetrics & Gynecology; Referring Provider Obstetrics & Gynecology; Visit Provider Obstetrics & Gynecology | DX: O30.043 Twin pregnancy, dichorionic/diamniotic, third trimester (principal); Z3A.36 36 weeks gestation of pregnancy; Z34.83 Encounter for supervision of other normal pregnancy, third trimester | CPT/HCPCS: 59025; 87653; G0378; G0379 ==

== ENCOUNTER 2021-11-11 05:43 | Inpatient (IN) | payer OTHER, SELFPAY ==
--- NOTE | 2021-11-11 | PATH_ITS ---
[facility] Accession Number: [id number] . 01 Material submitted: . fallopian tube - BILATERAL FALLOPIAN TUBES . 01 Diagnosis: Bilateral Fallopian Tubes, Sterilization: Bilateral fallopian tubes with no evidence of neoplasia. Paratubal cysts. Endosalpingiosis. [facility] 11/16/2021 0943 Local . 01 Electronically signed: . Gricel Cook MD, Pathologist NPI- [id number] . 01 Gross description: . The specimen is received in formalin labeled with the patient's name and bilat fallopian tubes, and consists of two unoriented fimbriated fallopian tubes measuring 7.8 x 1.1 cm and 5.7 x 0.8 cm, respectively. The longer fallopian tube has congested smooth serosa with a cystic structure measuring 0.1 cm in greatest dimension. Sectioning reveals a congested stellate lumen. The shorter fallopian tube has congested smooth serosa with multiple cystic structures near the fimbriated end measuring 0.4 cm in greatest dimension and filled with clear serous fluid. Sectioning reveals a congested stellate lumen. Chore Tender sections to include entire fimbriae and cross-sections are submitted as follows: . A1: Longer fallopian tube. A2: [place] fallopian tube. ([id number]) /MRV 11/15/2021 1829 Local . 01 Pathologist provided ICD-10: Z30.2 . 01 CPT . 339525 Specimen Comment: A courtesy copy of this report has been sent to [facility] Pathology Performed at: 01 [facility] [address] [place] [address] [address], [place], [place] [id number] MD Bright Odonnell MD Phone: [phone]
[2021-11-11 06:29] VITALS: BP 147/63
[2021-11-11 06:35] LABS: Hematocrit 35.8 % (36-46); Hemoglobin 11.8 g/dL (12.0-16.0); Mean Corpuscular Hemoglobin 25.7 PG (26-34); Mean Corpuscular Volume 77.9 fL (80-100); Platelet Count 204 X10^3/uL (150-400); Red Cell Distribution Width 17.2 % (11.6-14.8); White Blood Cell Count 10.3 X10^3/uL (4.5-11.0)
[2021-11-11 06:36] LABS: Add Manual Diff / Slide Review YES
[2021-11-11 06:54] LABS: COVID19 -Nasal RAPID Negative (Negative)
[2021-11-11 07:26] LABS: Neutrophils Absolute Manual 7416 /uL (3000-5900); Total Cells Counted 100
[2021-11-11 07:30] LABS: Anisocytosis 1+
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
--- NOTE | 2021-11-11 08:02 | PM.PREOP ---
Pre-operative Note COVID-19 COVID-19 status: Negative Result date/Date tested (Pos, Neg/Pending): 11/11/21 Criteria for continued procedure: Non-surgical alternatives not available or appropriate per current SOC Interval Note History & Physical reviewed/Exam performed by Physician: Yes Changes to H&P: No H&P completed within 30 days and has changed as indicated here:: 11/11/21
[2021-11-11] MEDS: CEFAZOLIN 2 GM/100 ML PREMIX 100 ML IV (08:15)
[2021-11-11] MEDS: CEFAZOLIN VIAL 1 GM in SODIUM CHLORIDE 0.9% 100 ML IV (08:15)
[2021-11-11] MEDS: ACETAMINOPHEN IV 1,000 MG/100 ML VIAL 400 MG IV (09:05)
[2021-11-11 09:34] VITALS: BP 108/55; PULSE 75; RESP 12; TEMP 36.5; O2SAT 98
--- NOTE | 2021-11-11 09:37 | P.OP_ITS ---
Operative Date/Time/Diagnoses Date of procedure: 11/11/21 Time of procedure: 09:38 Pre-op diagnosis: Thirty-seven weeks gestation Dichorionic/diamniotic twins Previous section Post-op diagnosis: same Procedure & Clinicians Procedure: Repeat low-transverse section Same procedure as scheduled: Yes Indications: 37 weeks gestation Dichorionic/diamniotic twins Previous section Surgeon: Gaviota Brantley Click Yes if Unassisted: No Machine Mover: Estella Grewal Anesthesia Type: Spinal (With Duramorph) Operative Notes Findings: Baby B in the breech presentation Baby A in the vertex presentation Normal uterus, tubes, and ovaries Clear amniotic fluid in both sacs Closure Type: primary Specimen(s): cord blood, placenta and tubes/segments of tubes Intraoperative meds administered: Acetaminophen, Duramorph, Ketorolac and Pitocin Applied: Catheter (To continuous drainage) Estimated Blood Loss (mL): 500 Blood products transfused: none Procedure in detail: The patient was taken to the operating room where she was placed in the seated position. Spinal anesthesia with Duramorph was administered. The patient was then placed in the dorsal supine position with a leftward tilt. She was prepped and draped in the usual sterile fashion. A timeout was performed. After spinal analgesia was found to be adequate, a Pfannenstiel skin incision was made thr ough the previous incision and carried through to the underlying layer fascia. The fascia was nicked in the midline, and the incision extended bilaterally with the Payne scissors. The superior aspect of the fascial incision was grasped with a [place] clamps, elevated, and the underlying rectus muscles dissected off sharply and bluntly. Attention was then turned to the inferior aspect of this incision which in a similar fashion was grasped with a [place] clamps, elevated, and the underlying rectus muscles dissected off sharply and bluntly. The rectus muscles were in the midline. The peritoneum was identified, grasped between 2 hemostats, and entered sharply with the Metzenbaum scissors. This incision was extended superiorly and inferiorly with good visualization of the bladder. The bladder blade was inserted. The vesicouterine peritoneum was identified, grasped with the pickup, and entered sharply with the Metzenbaum scissors. This incision was extended bilaterally, and the bladder flap was created digitally. The bladder blade was reinserted. The lower uterine segment was incised in a transverse fashion with the scalpel. Upon entering the amniotic sac there was a large amount of clear amniotic fluid. The first baby delivered was baby B who was in the breech presentation. The baby was delivered by total breech extraction. The nose and mouth were suctioned with bulb suction. . The cord was double clamped and cut after 1 minute. The infant was handed off to waiting RN and RT. Cord bloods for baby A obtained. Baby B was found to be in the vertex presentation. The sac was ruptured with copious clear amniotic fluid. The baby was delivered without difficulty. The cord was double clamped and cut after 1 minute. Cord bloods were obtained. The placenta was expressed. The uterus was cleared of all clots and debris. The uterine incision was repaired with #1 chromic in a running interlocking fashion, and a second layer the same suture was used for an imbricating layer. Hemostasis was achieved. The gutters were cleared of all clots and debris. The tubes and ovaries were examined and were found to be normal. The left tube was grasped with a [place] and carried out to the fimbriated end. Using the power seal, the mesosalpinx was cauterized and cut all the way to the cornua of the uterus. The tube was amputated at the cornua. Hemostasis was achieved. This was repeated on the patient's right tube. The bladder flap was reapproximated using 2-0 Vicryl in a running fashion. The parietal peritoneum was closed using 2-0 Vicryl in a running fashion. The fascia was reapproximated using 0 Vicryl in a running fashion. The subcutaneous layer was copiously irrigated with warm normal saline. Two layers of simple interrupted sutures of 3-0 Vicryl were placed to reapproximate the subcutaneous layer. The skin was closed with 4-0 Monocryl in a subcuticular fashion. Steri-Strips were placed. An Aquacel dressing was placed. The uterus was expressed of a small amount of old blood. Sponge, lap, and instrument counts were correct x-2. The patient tolerated the procedure well, and was taken to PACU in stable condition. Complications: none Daisy Baby 1: Infant Gender: Female Presentation: vertex Placental Delivery Description: Expressed Cord Vessel Description: 3 Vessels and Clamped/Cut (After 1 minutes) score (1 min): 8 score (5 min): 9 weight: 6 lb 2.6 oz 2: Infant Gender: Female Presentation: breech Details: complete Placental Delivery Description: Expressed Cord Vessel Description: 3 Vessels and Clamped/Cut (After 1 minute) score (1 min): 8 score (5 min): 9 weight: 5 lb 6.9 oz Post-operative Condition: stable Disposition: PACU Aftercare: routine postop
[2021-11-11 09:39] VITALS: BP 114/66; PULSE 80; RESP 15; O2SAT 97
[2021-11-11 09:44] VITALS: BP 101/64; PULSE 78; RESP 11; O2SAT 95
[2021-11-11 09:49] VITALS: BP 106/64; PULSE 69; RESP 12; TEMP 36.1; O2SAT 96
--- NOTE | 2021-11-11 09:52 | SUR.PHASEI ---
Report called to Paola.
--- NOTE | 2021-11-11 10:05 | SUR.PHASEI ---
Patient transferred to the center. Report given to Paola. VS stable. Fundus checked. Batool pad and chux changed. IV patent. Hodges patent.
--- NOTE | 2021-11-11 10:55 | SUR.OPER ---
Late entry Supine on Padded OR bed, head on pillow, safety belt at thigh, arms secured on padded arm boards at <90 degrees abduction. Bump under right buttock. Legs uncrossed with pillow under knees, gel pad to heels, tape over blanket to lower legs. Gel pad under bilateral heels and gel pad placed between urinary catheter tubing and patients posterior upper leg.
--- NOTE | 2021-11-11 11:00 | SUR.OPER ---
Viable baby girl B delivered at 0841, Viable baby girl A delivered at 0845. Placenta delivered. Placenta and Baby A X2 and baby B X2 cord blood tubes given to L&D RN.
[2021-11-11] MEDS: KETOROLAC 30 MG/ML VIAL IV ×2 (14:57→21:07)
[2021-11-12] MEDS: KETOROLAC 30 MG/ML VIAL IV ×2 (03:27→10:05)
[2021-11-12 06:54] LABS: Hematocrit 29.9 % (36-46); Hemoglobin 10.1 g/dL (12.0-16.0)
[2021-11-12 08:00] VITALS: BP 122/58; PULSE 73; RESP 16; TEMP 36.9
[2021-11-12 10:05] VITALS: BP 126/68; PULSE 64
[2021-11-12] MEDS: LABETALOL 100 MG TABLET PO (10:05)
[2021-11-12] MEDS: DOCUSATE 100 MG CAPSULE 200 MG PO (10:06)
--- NOTE | 2021-11-12 10:51 | P.PNOB_ITS ---
Subjective - OB Subjective Patient comments: no complaints, pain well controlled, tolerating diet and flatus present baby status: doing well (x2) and bottle feeding well [place] feeding status: exclusively bottle feeding Narrative: She denies any problems. No nausea. Hodges catheter removed and she has already voided twice without problems. Feels she is emptying her bladder fine. Lochia is normal. Date Patient Seen: 11/12/21 Time Patient Seen: 10:45 Exam Vital Signs (past 8 hours): - 11/12/21 10:05 Pulse Rate 64 Blood Pressure 126/68 Oxygen Delivery Method Room Air Temp 36.1C Narrative Exam Narrative: General: Well-appearing female Abdomen: Soft, nontender away from the dressing, nondistended. Dressing is dry, intact. Fundus U-3, firm, nontender Extremities: No pedal edema Objective Labs Result Diagrams: 11/12/21 06:25 Labs: Laboratory Results - last 24 hr 11/12/21 06:25 Hgb 10.1 L Hct 29.9 L Assessment & Plan Plan day: 1 plan OB: routine postop care Comments: Doing well. Increase ambulation today. Time Spent With Patient Time: Total time spent is greater than 50% in coordination of care (as documented) at patient's floor/unit and/or counseling patient: Time with patient: less than 15 minutes
[2021-11-12] MEDS: IBUPROFEN 600 MG TABLET PO ×2 (15:40→21:33)
[2021-11-12] MEDS: ACETAMINOPHEN 325 MG TABLET 650 MG PO (18:27)
[2021-11-12] MEDS: OXYCODONE IR 5 MG TABLET PO (19:49)
[2021-11-13] MEDS: OXYCODONE IR 5 MG TABLET PO ×3 (00:31→10:19)
[2021-11-13] MEDS: ACETAMINOPHEN 325 MG TABLET 650 MG PO ×3 (00:31→12:27)
[2021-11-13] MEDS: IBUPROFEN 600 MG TABLET PO ×2 (03:34→08:49)
[2021-11-13 08:48] VITALS: BP 122/58; PULSE 73
[2021-11-13] MEDS: LABETALOL 100 MG TABLET PO (08:48)
[2021-11-13] MEDS: PRENATAL VIT,CALC/IRON/FOLIC 1 TABLET 1 TAB PO (08:49)
[2021-11-13] MEDS: DOCUSATE 100 MG CAPSULE 200 MG PO (08:49)
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
== END 2021-11-13 13:00 | disposition home or self-care (01) | DRG 785 ==
PROVIDERS: Admitting Provider Obstetrics & Gynecology; Referring Provider Obstetrics & Gynecology; Visit Provider Obstetrics & Gynecology
PROC: 10D00Z1 Extraction of Products of Conception, Low, Open Approach (ICD-10-PCS; CPT 59514; principal; 2021-11-11 07:45)
DX: O30.043 Twin pregnancy, dichorionic/diamniotic, third trimester (principal); O34.211 Maternal care for low transverse scar from previous cesarean delivery; O32.8XX0 Maternal care for other malpresentation of fetus, not applicable or unspecified; Z30.2 Encounter for sterilization; O13.4 Gestational [pregnancy-induced] hypertension without significant proteinuria, complicating childbirth; Z3A.37 37 weeks gestation of pregnancy; Z37.2 Twins, both liveborn; Z20.822 Contact with and (suspected) exposure to COVID-19
CPT/HCPCS: 01961; 36415; 58611; 59050; 59510; 59514; 85007; 85014; 85018; 85025; 86850; 86900; 86901; 87635; C9803; J0131; J0690; J1885; J2274; J2405; J2590; J2704

== ENCOUNTER → 2023-10-21 09:44 | Outpatient (CLI) | payer OTHER, SELFPAY ==
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
== END ==
PROVIDERS: Referring Provider Student in an Organized Health Care Education/Training Program; Visit Provider Student in an Organized Health Care Education/Training Program
DX: S93.401A Sprain of unspecified ligament of right ankle, initial encounter (principal); S93.609A Unspecified sprain of unspecified foot, initial encounter
CPT/HCPCS: 73600; 73620

== ENCOUNTER → 2023-11-24 17:02 | Outpatient (CLI) | payer OTHER, SELFPAY ==
[2023-11-24 17:45] LABS: Influenza A - CEPHEID Flu A NEGATIVE (NEGATIVE); Influenza B - CEPHEID Flu B NEGATIVE (NEGATIVE); Respiratory Syncytial Virus Negative (Negative)
[2023-11-24 17:47] LABS: COVID-19 CEPHEID 4-PLEX PCR Negative (Negative)
== END ==
PROVIDERS: Visit Provider Registered Nurse
DX: R05.1 Acute cough (principal)
CPT/HCPCS: 0241U

== ENCOUNTER → 2023-11-24 17:09 | Outpatient (CLI) | payer OTHER, SELFPAY ==
--- NOTE | 2023-11-24 17:10 | DI.RAD.S_ITS ---
PROCEDURE: XR CHEST 2V INDICATIONS: Cough. TECHNIQUE: 2 views of the chest were acquired. COMPARISON: None. FINDINGS: Surgical changes and devices: None. Lungs and pleura: Lungs are clear. No pleural effusions or pneumothorax. Mediastinum: Mediastinal contours are normal. Heart size is normal. Bones and chest wall: No suspicious bony abnormalities. Soft tissues appear unremarkable. IMPRESSION: No focal infiltrates are seen. No acute cardiopulmonary abnormality is seen. Dictated by: Maldonado Roberts M.D. on 11/24/2023 at 16:45 Approved by: Maldonado Roberts M.D. on 11/24/2023 at 16:45
== END ==
LOC: RAD 17:09
PROVIDERS: Referring Provider Registered Nurse; Visit Provider Registered Nurse
DX: R05.1 Acute cough (principal)
CPT/HCPCS: 0241U; 71046

== ENCOUNTER → 2023-12-09 15:19 | Outpatient (CLI) | payer OTHER, SELFPAY | PROVIDERS: Visit Provider Nurse Practitioner Family | DX: J02.9 Acute pharyngitis, unspecified (principal); R05.9 Cough, unspecified | CPT/HCPCS: 87070 ==

== ENCOUNTER → 2024-12-24 08:06 | Outpatient (CLI) | payer OTHER, SELFPAY ==
--- NOTE | 2024-12-24 08:07 | DI.RAD.S_ITS ---
PROCEDURE: XR CHEST 2V
== END ==
PROVIDERS: PCP Nurse Practitioner Family; Referring Provider Nurse Practitioner Family; Visit Provider Nurse Practitioner Family
DX: J02.9 Acute pharyngitis, unspecified (principal); R05.9 Cough, unspecified
CPT/HCPCS: 71046; 87637

== ENCOUNTER → 2024-12-24 09:51 | Outpatient (CLI) | payer OTHER, SELFPAY ==
[2024-12-24 11:29] LABS: Influenza A - CEPHEID Flu A NEGATIVE (NEGATIVE); Influenza B - CEPHEID Flu B NEGATIVE (NEGATIVE)
[2024-12-24 11:32] LABS: COVID-19 CEPHEID 4-PLEX PCR Negative (Negative)
== END ==
PROVIDERS: PCP Nurse Practitioner Family; Visit Provider Nurse Practitioner Family
DX: J02.9 Acute pharyngitis, unspecified (principal)
CPT/HCPCS: 87637